=== PATIENT | male | born 1995 | race Caucasian/White ===

== ENCOUNTER 2019-01-05 14:04 | Emergency (ER) | payer SELFPAY ==
--- NOTE | 2019-01-05 15:37 | ED ---
Substance Abuse/Use - HPI Summary HPI Summary: Patient is an otherwise healthy 23-year-old male presenting to the ED with the concern for eating poisonous [place]. He states he was hiking when he smelled plan at that smelled like isaac and decided to taste a few leaves. He spit these leaves out, but remains concerned over this may be poisoning. He did immediately have anxiety symptoms, but states he does not believe this is due to the plant and rather anxiety over possibly ingestion of poisons substance. He is asymptomatic at this time. He denies any other complaints. - History Of Current Complaint Chief Complaint: EDGeneral Stated Complaint: POSS INJ POISON HEMLOCK PER PT Time Seen by Provider: 01/05/19 15:06 Hx Obtained From: Patient Ingestion History: Amount Ingested - 2 leaves Overdose Characteristics: Oral Severity Initially: Mild Severity Currently: None Aggravating Factor(s): Nothing Alleviating Factor(s): Nothing Associated Signs And Symptoms: Negative - Allergies/Home Medications Allergies/Adverse Reactions: Allergies Allergy/AdvReac Type Severity Reaction Status Date / Time No Known Allergies Allergy Verified 01/05/19 14:12 Home Medications: Home Medications NK [No Home Medications Reported] 01/05/19 [History Confirmed 01/05/19] PMH/Surg Hx/FS Hx/Imm Hx Previously Healthy: Yes - Immunization History Hx Pertussis Vaccination: No Immunizations Up to Date: Yes Infectious Disease History: No Infectious Disease History: Denies: Traveled Outside the [place] in Last 30 Days - Social History Occupation: Unemployed, Disabled Lives: Dormitory/Roommates Alcohol Use: Weekly Hx Substance Use: No Substance Use Type: Reports: None Hx Tobacco Use: No Smoking Status (MU): Former Smoker Review of Systems Constitutional: Negative Negative: Fever, Chills, Fatigue, Skin Diaphoresis Negative: Palpitations, Chest Pain Negative: Shortness Of Breath, Cough Genitourinary: Negative Positive: no symptoms reported, see HPI Negative: Arthralgia, Myalgia Negative: Rash Neurological: Negative All Other Systems Reviewed And Are Negative: Yes Physical Exam Triage Information Reviewed: Yes Vital Signs On Initial Exam: Initial Vitals Temp Pulse Resp BP Pulse Ox 98.6 F 65 18 123/72 99 01/05/19 14:09 01/05/19 14:09 01/05/19 14:09 01/05/19 14:09 04/14/19 14:09 Vital Signs Reviewed: Yes Appearance: Positive: Well-Appearing, Well-Nourished Skin: Positive: Warm, Skin Color Reflects Adequate Perfusion Head/Face: Positive: Normal Head/Face Inspection Eyes: Positive: EOMI, Conjunctiva Clear Neck: Positive: Supple, No Lymphadenopathy Respiratory/Lung Sounds: Positive: Clear to Auscultation, Breath Sounds Present Cardiovascular: Positive: RRR, Pulses are Symmetrical in both Upper and Lower Extremities Musculoskeletal: Positive: Strength/ROM Intact Neurological: Positive: Speech Normal Psychiatric: Positive: Affect/Mood Appropriate AVPU Assessment: Alert Diagnostics - Vital Signs Vital Signs Temp Pulse Resp BP Pulse Ox 01/05/19 15:16 69 137/64 97 01/05/19 15:08 63 99 01/05/19 14:09 98.6 F 65 18 123/72 99 - Laboratory Lab Statement: Any lab studies that have been ordered have been reviewed, and results considered in the medical decision making process. Course/Dx - Course Course Of Treatment: Patient appears in no acute distress. He is smiling on exam. He denies any nausea, vomiting, headache, visual changes. He denies any symptoms at this time. Poison control called as patient took a few leaves onto his tongue and may have ingested one of a small plant that he thinks may be poisonous [place]. Discussed case with poison control. Poison control states chewing believes causes a rapid nicotinic effect including rapid vomiting, confusion and BARK FITTER depression. She recommended since the patient has had none of these symptoms and is more than 2 hours after tasting the leaves, he likely did not ingest enough believes or did not ingest [place] plant for cause of concerned. He should be DC'd with the instructions to return to the ED if he develops any nausea or vomiting and also given the number to poison control if he has any further questions. Discussed with the patient. Patient continues to feel well and is asymptomatic. He is okay for discharge at this time and is understanding of return precautions. - Diagnoses Differential Diagnosis/HQI/PQRI: Positive: Other - Poisoning, nicotinic effect Provider Diagnoses: Anxiety about health Discharge - Sign-Out/Discharge Documenting (check all that apply): Patient Departure Patient Received Moderate/Deep Sedation with Procedure: No - Discharge Plan Condition: Stable Disposition: HOME Referrals: No Primary Care Phys,NOPCP [Primary Care Provider] - Additional Instructions: As discussed, there is no evidence of nicotinic poisoning including rapid vomiting, confusion and BARK FITTER depression. If you do develop any nausea or vomiting, return to the ED. You may also call poison control yourself at if you develop any symptoms - Billing Disposition and Condition Condition: STABLE Disposition: Home
[2019-01-05 16:06] VITALS: BP 127/67
== END 2019-01-05 16:05 | disposition home or self-care (01) ==
LOC: ED 14:04
DX: F41.9 Anxiety disorder, unspecified (principal); Z87.891 Personal history of nicotine dependence
CPT/HCPCS: 99282